=== PATIENT | female | born 1945 | race Caucasian/White ===

== ENCOUNTER 2021-07-23 13:19 | Emergency (ER) | payer MEDICARE, OTHER ==
[2021-07-23 14:40] LABS: HEMOGLOBIN 8.8 gm/dl (12.3-15.3); RED BLOOD COUNT 2.77 M/UL (4.00-5.10)
== END 2021-07-23 19:34 | disposition home or self-care (01) ==
LOC: ER1 13:19
PROVIDERS: Family Medicine
DX: U07.1 COVID-19 (principal); J12.82 Pneumonia due to coronavirus disease 2019; R53.1 Weakness; Z99.2 Dependence on renal dialysis; E03.9 Hypothyroidism, unspecified; N18.6 End stage renal disease
CPT/HCPCS: 51701; 70450; 71045; 80053; 81001; 82550; 82553; 83605; 83735; 83874; 84484; 85025; 93005; 99285